=== PATIENT | male | born 1935 | race Caucasian/White ===

== ENCOUNTER → 2017-05-24 | Outpatient (CLI) | payer MEDICARE, BC ==
[~2017-05-24] MED LIST: DICLOFENAC PO; FLOMAX0.4 M1 PO; GLUCOTEN CAPLET1 TAB PO; LISINOPRIL20 MG PO; NIACIN500 M1 PO; ODORLESS GARLIC1 CAP PO; VIT E PO; VITAMIN C500 MG/15 PO; ZOCOR20 MG PO
--- NOTE | ~2017-05-24 | CT114 ---
[facility] A Service of [facility] & [facility] RADIOLOGY TEXT RESULTS PATIENT: TARAH CARVALHO JR LOCATION: [facility] : 33 UNIT #: [id number] AGE: [address]: Lakisha Mosley APRN SEX: M ORDER DR: [id number] [facility] [address] [place], [place] [address] [id number] O MR#: [id number] [facility] #: [id number] NAME: TARAH CARVALHO : 1935 SEX: M STUDY DATE/TIME: 05/24/2017 11:23 UNIT: [facility] ROOM: STUDY DESCRIPTION: CT Soft Tissue Neck W Cont Attending Physician: Lakisha Mosley A.P.R.N. Referring Physician: Lakisha Mosley A.P.R.N. Ordering Physician: Lakisha Mosley A.P.R.N. Primary Care Physician: Praneeth Roberson D.O. MEDICAL IMAGING REPORT This report is preliminary unless electronic signature is present EXAM Soft tissue neck CT with contrast. HISTORY Three-week history of right submandibular mass and tenderness. PROCEDURE Axial contrast-enhanced soft tissue neck CT with multiplanar reformats with a cutaneous marker in place over the region of interest. This CT exam was performed with one or more of the following radiation dose reduction techniques: automatic exposure control, adjustment of mA and/or kV according to patient size, and iterative reconstruction. FINDINGS There is no suspicious mass or inflammatory change or abnormal fluid collection. There is no discrete imaging correlate for the region of abnormality. The parotid and submandibular salivary glands appear overall symmetric without inflammatory change, mass or calcification. No calcifications seen along the course of either Sha or Stensen ducts. There is no suspicious cervical adenopathy. There is plaque at the cervical carotid bifurcations and, while the study is not designed to allow assessment for carotid stenosis by NASCET criteria, no substantial stenosis is suspected. There are spinal degenerative changes, but no fracture or bone erosion or destruction. The visualized paranasal sinuses are unremarkable except for a small left maxillary floor retention cyst. Non detailed images of the larynx are normal. The upper mediastinum and visualized lung apices show no acute abnormality. IMPRESSION [facility]. [facility] A Service of [facility] & [facility] RADIOLOGY TEXT RESULTS PATIENT: TARAH CARVALHO JR LOCATION: [facility] : 33 UNIT #: [id number] AGE: [address]: Lakisha Mosley HEEL COVER SPLITTER SEX: M ORDER DR: 1. Essentially negative soft tissue neck CT. There is no imaging correlate for the abnormality depicted or indicated by the cutaneous marker. No suspicious mass, inflammatory change or abnormal fluid collection or other acute process is identified. 2. Incidentally noted atherosclerotic plaque at the carotid bifurcations, but no suggestion of significant stenosis in either internal carotid. Dictated by... Tim Hassan M.D. THIS IS AN ELECTRONICALLY VERIFIED REPORT Tim Hassan M.D. at 05/26/2017 2:08 PM TEV/pc TD: 05/25/2017 07:09 JOB #: [id number] MEDICAL IMAGING REPORT Page 1 of 1 COPY
[2017-05-24 12:21] LABS: POC - CREATININE 0.94 mg/dL (0.64-1.27); POC - GFR >60.0 mL/min (>60)
== END | disposition home or self-care (01) ==
LOC: CCAT 09:48
PROVIDERS: Nurse Practitioner Family
DX: R59.0 Localized enlarged lymph nodes (principal)
CPT/HCPCS: 70491; 82565; Q9967